=== PATIENT | male | born 1965 | race Caucasian/White ===

== ENCOUNTER → 2019-10-07 10:46 | Day surgery (SDC) | payer OTHER ==
[~2019-10-07 10:46] MED LIST: Acetaminophen TAB* 325 MG PO PRN; Bacitracin OINTMENT* 0.5% 0.5 oz TUBE ONE; Buffered Lidocaine 1% SYRIN* 1 ML/SYRINGE INTRADERM ONE; Bupivacaine 0.5%* 50 ML MDV VIAL ONE; Dexamethasone IV* 4 MG/ML 1 ML (4 MG) ONE; HYDROmorphone INJ1* 1 MG/ML SYRINGE IV PRN; Ibuprofen TAB* 400 MG PO PRN; Lactated Ringers 1000 ML Bag* 1,000 ML IV SCH; Lidocaine 2% PF * 5 ML VIAL ONE; Lidocaine 2% PF* 10 ML AMP ONE; Midazolam* 1 MG/ML 2 ML VIAL (2 MG) ONE; Naloxone* 0.4 MG/ML 1 ML VIAL IV PRN; Ondansetron INJ* 2 MG/ML VIAL ONE; Propofol* 10 MG/ML 20 ML BTL ONE; ceFAZolin 2 GM PREMIX in ORs 2 GM/50 ML BAG ONE; fentaNYL* 50 MCG/ML 2 ML VIAL (100 MCG VIAL) ONE
[2019-10-07 15:12] VITALS: BP 123/64
--- NOTE | 2019-10-08 05:36 | OP ---
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 POST-OP DIAGNOSIS: Chronic ingrown right great toenail. OPERATIVE PROCEDURE: Right great toenail ablation. DESCRIPTION OF PROCEDURE: The patient was taken to the operating room where local anesthetic and ankle Esmarch was applied. Using blunt dissection with a Betty, we removed the toenail. We then undermined medial and lateral cuticular gutter as well as the proximal cuticular gutter with a 15 blade removing the matrix down to the phalanx. A small curette was used to scrape away any remaining matrix. We then irrigated thoroughly, closing the nail bed back to the edge of the cuticle with interrupted 3-0 Monocryl sutures. Some Betadine ointment was placed over the toe with some Xeroform and then compressive dressing. [id number]/[facility] #: [id number] [facility]
== END | disposition home or self-care (01) ==
LOC: OR 10:46
PROVIDERS: ATTEND Orthopaedic Surgery
DX: L60.0 Ingrowing nail (principal); B35.1 Tinea unguium; M79.674 Pain in right toe(s); F17.210 Nicotine dependence, cigarettes, uncomplicated
CPT/HCPCS: 88304; 88312; A9270-GY; J0690; J1100; J2001; J2250; J2405; J2704; J3010; J3490